=== PATIENT | female | born 1990 | race Hispanic/Latino ===

== ENCOUNTER 2022-10-09 13:06 | Inpatient (IN) | payer BC ==
[2022-10-09] MEDS ORDERED: HYDROcodone/Acetaminophen 5/325 mg Tablet PO PRN (21:00)
[2022-10-09] MEDS ORDERED: Carboprost 250 MCG/ML AMP IM PRN (21:00)
[2022-10-09] MEDS ORDERED: Methylergonovine 0.2 MG/ML VIAL IM PRN (21:00)
[2022-10-09] MEDS ORDERED: Misoprostol 200 MCG TAB PR PRN (21:00)
[2022-10-09] MEDS ORDERED: Ondansetron PF 4 MG/2 ML Vial IVP PRN (21:00)
[2022-10-09] MEDS ORDERED: Diphenoxylate HCl/Atropine Tablet PO PRN (21:00)
[2022-10-09] MEDS ORDERED: hydrALAZINE 20 MG/ML VIAL SLOW IVP PRN (21:00)
[2022-10-09] MEDS ORDERED: Lidocaine 1% (PF) 30 ML VIAL SC PRN (21:00)
[2022-10-09] MEDS ORDERED: NS w/ Oxytocin 30 units 500 ML IV SCH ×2 (21:00)
[2022-10-09] MEDS ORDERED: Zolpidem Tartrate 5 MG TAB PO PRN (21:00)
[2022-10-09] MEDS ORDERED: Promethazine HCl 25 MG/ML VIAL IM PRN (21:00)
[2022-10-09] MEDS ORDERED: Ibuprofen 800 MG TAB PO PRN (21:00)
[2022-10-09 21:13] VITALS: BMI 30.9
[2022-10-09 22:17] LABS: Hemoglobin 12.3 g/dL (12.0-15.5); Mean Corpuscular HGB CONC 34.2 g/dL (32.0-36.0); Mean Corpuscular Hemoglobin 28.6 pg (27.0-33.0); Mean Corpuscular Volume 83.7 fl (81.6-98.3); Mean Platelet Volume 10.6 fl (7.4-10.4); Platelet Count 225 10x3/uL (150-450); RBC Distribution Width 13.9 % (11.5-14.5)
[2022-10-09] MEDS: Misoprostol 100 MCG TAB VAG SCH (22:19)
[2022-10-09] MEDS ORDERED: Penicillin G Potassium 5 MILL.UNITS VIAL ONE (22:33)
[2022-10-09 22:47] LABS: HBSAg Index 0.16 S/CO (0-0.99); Hep B Surf Ag - L&D Non-Reactive S/CO (NonReactive); Syphilis Antibody Nonreactive (Nonreactive); Syphilis Antibody Index 0.04 S/CO (<1.00 Non-Reactive)
[2022-10-09] MEDS: Lactated Ringer's 1,000 ML IV SCH (22:52)
[2022-10-10] MEDS: Misoprostol 100 MCG TAB VAG SCH ×3 (01:34→10:37)
[2022-10-10] MEDS: Lactated Ringer's 1,000 ML IV SCH (05:36)
[2022-10-10] MEDS ORDERED: Penicillin G Potassium 5 MILL.UNITS in Sodium Chloride 0.9% 100 ML IVPB SCH (14:30)
[2022-10-10] MEDS ORDERED: fentaNYL 50 mcg/mL 1 mL Vial ONE (15:21)
[2022-10-10] MEDS ORDERED: fentaNYL 50 mcg/mL 1 mL Vial SLOW IVP PRN (15:29)
[2022-10-10] MEDS ORDERED: fentaNYL/Ropivacaine Epidural 100 ML ONE (16:04)
[2022-10-10] MEDS ORDERED: Pen G 2.5 MILL.UNITS/50 ML BAG IVPB SCH (18:00)
[2022-10-10] MEDS ORDERED: Lanolin Ointment 7 GM TUBE TOP PRN (21:42)
[2022-10-10] MEDS ORDERED: Bisacodyl 10 MG SUPP PR PRN (21:42)
[2022-10-10] MEDS ORDERED: hydrALAZINE 20 MG/ML VIAL SLOW IVP PRN (21:42)
[2022-10-10] MEDS ORDERED: Preparation H Ointment 28 GM TUBE PR PRN (21:42)
[2022-10-10] MEDS ORDERED: Milk Of Magnesia 30 ML UDCUP PO PRN (21:42)
[2022-10-10] MEDS ORDERED: Benzocaine-Menthol 82.5 ML CAN TOP PRN (21:42)
[2022-10-10] MEDS ORDERED: diphenhydrAMINE 25 MG CAP PO PRN (21:42)
[2022-10-10] MEDS ORDERED: Promethazine HCl 25 MG/ML VIAL IM PRN (21:42)
[2022-10-10] MEDS ORDERED: Boostrix 0.5 ML (Tdap) VIAL (>/=7 yrs of age) IM ONE (21:42)
[2022-10-10] MEDS ORDERED: Ondansetron PF 4 MG/2 ML Vial IVP PRN (21:42)
[2022-10-10] MEDS ORDERED: Docusate 100 MG CAP PO SCH (22:15)
[2022-10-10] MEDS: HYDROcodone/Acetaminophen 5/325 mg Tablet PO PRN (22:46)
[2022-10-10] MEDS: Docusate 100 MG CAP PO SCH (22:46)
[2022-10-11] MEDS: Ibuprofen 800 MG TAB PO SCH ×3 (04:27→20:13)
[2022-10-11] MEDS: Ferrous Sulfate 325 MG TAB PO SCH ×2 (08:29→17:00)
[2022-10-11] MEDS: Docusate 100 MG CAP PO SCH ×2 (08:48→20:13)
[2022-10-11] MEDS: Prenatal Vitamin 1 TAB PO SCH (08:48)
[2022-10-11] MEDS: HYDROcodone/Acetaminophen 5/325 mg Tablet PO PRN ×2 (08:49→12:55)
[2022-10-11] MEDS: Fioricet 325/50/40 mg Tablet PO PRN (17:17)
[2022-10-11] MEDS: Lactated Ringer's 1,000 ML IV SCH (17:18)
[2022-10-12] MEDS: Fioricet 325/50/40 mg Tablet PO PRN ×4 (00:47→17:24)
[2022-10-12] MEDS: Lactated Ringer's 1,000 ML IV SCH ×2 (00:48→12:18)
[2022-10-12] MEDS: Ibuprofen 800 MG TAB PO SCH ×2 (03:28→11:29)
[2022-10-12 07:48] VITALS: BP 101/67; TEMP 98.1
[2022-10-12] MEDS: Docusate 100 MG CAP PO SCH (08:49)
[2022-10-12] MEDS: Prenatal Vitamin 1 TAB PO SCH (08:50)
[2022-10-12] MEDS: Ferrous Sulfate 325 MG TAB PO SCH (11:32)
[2022-10-12] MEDS ORDERED: Cyclobenzaprine 10 MG TAB PO SCH (12:00)
== END 2022-10-12 17:40 | disposition home or self-care (01) | DRG 807 ==
LOC: CSHLD 20:15 → CSHPP 10-10 21:10
PROVIDERS: ADMIT Student in an Organized Health Care Education/Training Program; ATTEND Student in an Organized Health Care Education/Training Program
PROC: 3E0P7VZ Introduction of Hormone into Female Reproductive, Via Natural or Artificial Opening (ICD-10-PCS; 2022-10-09)
PROC: 10E0XZZ Delivery of Products of Conception, External Approach (ICD-10-PCS; principal; 2022-10-10)
PROC: 0HQ9XZZ Repair Perineum Skin, External Approach (ICD-10-PCS; 2022-10-10)
DX: O99.824 Streptococcus B carrier state complicating childbirth (principal); Z37.0 Single live birth; Z3A.40 40 weeks gestation of pregnancy; O42.02 Full-term premature rupture of membranes, onset of labor within 24 hours of rupture; O69.81X0 Labor and delivery complicated by cord around neck, without compression, not applicable or unspecified; O70.0 First degree perineal laceration during delivery
CPT/HCPCS: 36415; 51702; 85027; 86780; 86850; 86900; 86901; 87340; J2540; J3010; J7120